=== PATIENT | female | born 1945 | race Caucasian/White ===

== ENCOUNTER 2016-05-26 10:41 | Emergency (ER) | payer MEDICARE | END 2016-05-26 14:05 | disposition home or self-care (01) | LOC: D.ER 10:41 | DX: T78.3XXA Angioneurotic edema, initial encounter (principal); M54.5 Low back pain; K21.9 Gastro-esophageal reflux disease without esophagitis; I10 Essential (primary) hypertension; K58.9 Irritable bowel syndrome, unspecified ==

== ENCOUNTER → 2017-06-15 08:42 | Outpatient (CLI) | payer MEDICARE, OTHER ==
[2017-07-02 13:47] VITALS: BMI 21.0
== END | disposition home or self-care (01) ==
LOC: D.US 08:42
DX: R22.43 Localized swelling, mass and lump, lower limb, bilateral (principal); M79.605 Pain in left leg; M79.604 Pain in right leg

== ENCOUNTER 2017-07-02 12:45 | Outpatient (CLI) | payer MEDICARE, OTHER ==
[~2017-07-02] VITALS: Ht 167.6 cm; Wt 59.1 kg
[2017-07-02 13:47] VITALS: BP 123/66; Ht 167.6 cm; Wt 59.1 kg
[2017-07-02 21:04] LABS: BASOPHILS 0.3 % (0-2); EOSINOPHILS 1.6 % (0-7); HEMATOCRIT 31.2 % (36.0-48.0); HEMOGLOBIN 9.8 g/dL (12-16); IMMATURE GRANULOCYTES 4.5 % (0-5); LYMPHOCYTES 20.6 % (15-50); MCH 29.3 pg (26.0-34.0); MCHC 31.4 g/dL (31.0-37.0); MCV 93.1 fL (80.0-100.0); MEAN PLATELET VOLUME 8.9 fL (7.4-10.4); MONOCYTES 9.4 % (2-11); NEUTROPHILS 63.6 % (40-80); RBC 3.35 10x6/uL (4.00-5.40); RDW 17.6 % (11.5-14.5)
[2017-07-02 21:05] LABS: PLATELET COUNT 282 10x3/uL (130-400)
== END 2017-07-02 20:50 | disposition home or self-care (01) ==
LOC: D.OPS 12:45
PROVIDERS: Family Medicine
DX: D64.9 Anemia, unspecified (principal)

== ENCOUNTER 2017-11-23 11:02 | Emergency (ER) | payer MEDICARE ==
[~2017-11-23] VITALS: Ht 167.6 cm; Wt 50.0 kg
[2017-11-23 11:25] VITALS: Ht 167.6 cm; Wt 50.0 kg
[2017-11-23 12:20] LABS: APPEARANCE SL CLDY (CLEAR); COLOR YELLOW (YELLOW)
[2017-11-23 12:21] LABS: BACTERIA MANY /hpf (NONE SEEN); BILIRUBIN NEGATIVE (NEGATIVE); EPITHELIAL CELLS OCC /hpf (0-5); GLUCOSE NEGATIVE (NEGATIVE); KETONE NEGATIVE (NEGATIVE); NITRITE POSITIVE (NEGATIVE); PROTEIN TRACE mg/dL (NEGATIVE); RED CELLS - URINE OCC /hpf (0-5); SPECIFIC GRAVITY 1.015 (1.005-1.020); UROBILINOGEN NORMAL (NORMAL)
[2017-11-23 13:28] LABS: BASOPHILS 0 % (0-2); EOSINOPHILS 0 % (0-7); HEMATOCRIT 40.5 % (36.0-48.0); HEMOGLOBIN 12.7 g/dL (12-16); IMMATURE GRANULOCYTES 0.5 % (0-5); LYMPHOCYTES 9.4 % (15-50); MCH 30.2 pg (26.0-34.0); MCHC 31.4 g/dL (31.0-37.0); MCV 96.4 fL (80.0-100.0); MONOCYTES 3.3 % (2-11); NEUTROPHILS 86.8 % (40-80); PLATELET COUNT 226 10x3/uL (130-400); RDW 15.7 % (11.5-14.5); WBC 7.9 10x3/uL (4.8-10.8)
[2017-11-23 13:52] LABS: ANION GAP 16.4 mmol/L (8-16); BILIRUBIN - TOTAL 0.41 mg/dL (0.2-1.3); CALCIUM 9.6 mg/dL (8.5-10.1); CARBON DIOXIDE 25.6 mmol/L (21.0-32.0); CREATININE - SERUM 2.1 mg/dL (0.6-1.3); PROTEIN - SERUM 8.3 g/dL (6.4-8.2)
[2017-11-23] MEDS ORDERED: MACROBID100 MG PO (13:59)
[2017-11-23] MEDS ORDERED: ZOFRAN8 MG PO (13:59)
[2017-11-23 14:40] VITALS: BP 147/89
== END 2017-11-23 14:40 | disposition home or self-care (01) ==
LOC: D.ER 11:02
PROVIDERS: Family Medicine
DX: R11.2 Nausea with vomiting, unspecified (principal); I12.9 Hypertensive chronic kidney disease with stage 1 through stage 4 chronic kidney disease, or unspecified chronic kidney disease; N18.9 Chronic kidney disease, unspecified; Z87.19 Personal history of other diseases of the digestive system; Z85.528 Personal history of other malignant neoplasm of kidney; Z90.5 Acquired absence of kidney

== ENCOUNTER → 2018-01-09 11:15 | Outpatient (CLI) | payer MEDICARE ==
[2017-11-23 11:25] VITALS: BMI 17.8
[~2018-01-09 11:15] MED LIST: MACROBID100 MG PO; ZOFRAN8 MG PO
[2018-01-09 13:41] LABS: INR 2.19 (0.85-1.17); PROTIME 23.7 SECONDS (11.6-15.0)
== END | disposition home or self-care (01) ==
LOC: D.LABREF 11:15
PROVIDERS: Family Medicine
DX: E55.9 Vitamin D deficiency, unspecified (principal); Z51.81 Encounter for therapeutic drug level monitoring; Z79.01 Long term (current) use of anticoagulants; I82.409 Acute embolism and thrombosis of unspecified deep veins of unspecified lower extremity

== ENCOUNTER → 2018-02-04 12:46 | Outpatient (CLI) | payer MEDICARE ==
[2017-11-23 11:25] VITALS: BMI 17.8
[2018-02-04 13:57] LABS: INR 3.52 (0.85-1.17); PROTIME 34.5 SECONDS (11.6-15.0)
== END | disposition home or self-care (01) ==
LOC: D.LAB 12:46
PROVIDERS: Family Medicine
DX: I82.409 Acute embolism and thrombosis of unspecified deep veins of unspecified lower extremity (principal); Z51.81 Encounter for therapeutic drug level monitoring; Z79.01 Long term (current) use of anticoagulants

== ENCOUNTER → 2018-04-24 11:14 | Outpatient (CLI) | payer MEDICARE ==
[2017-11-23 11:25] VITALS: BMI 17.8
[2018-04-24 12:14] LABS: BASOPHILS 0.3 % (0-2); EOSINOPHILS 0.9 % (0-7); HEMATOCRIT 41.7 % (36.0-48.0); HEMOGLOBIN 13.3 g/dL (12-16); MCH 29.2 pg (26.0-34.0); MCHC 31.9 g/dL (31.0-37.0); MCV 91.4 fL (80.0-100.0); MEAN PLATELET VOLUME 10.5 fL (7.4-10.4); MONOCYTES 8.3 % (2-11); NEUTROPHILS 53.5 % (40-80); PLATELET COUNT 191 10x3/uL (130-400); RBC 4.56 10x6/uL (4.00-5.40); RDW 13.9 % (11.5-14.5); WBC 3.2 10x3/uL (4.8-10.8)
[2018-04-24 12:17] LABS: ALBUMIN 4.1 g/dL (3.4-5.0); ANION GAP 10.2 mmol/L (8-16); BILIRUBIN - TOTAL 0.46 mg/dL (0.2-1.3); CALCIUM 9.8 mg/dL (8.5-10.1); CARBON DIOXIDE 30.7 mmol/L (21.0-32.0); CREATININE - SERUM 2.3 mg/dL (0.6-1.3); POTASSIUM - SERUM 3.9 mmol/L (3.5-5.1); PROTEIN - SERUM 9.1 g/dL (6.4-8.2); THYROID STIMULATING HORMONE 1.77 uIU/mL (0.36-3.74)
[2018-04-24 12:21] LABS: INR 1.19 (0.85-1.17); PROTIME 14.5 SECONDS (11.6-15.0)
== END | disposition home or self-care (01) ==
LOC: D.LAB 11:14
PROVIDERS: Family Medicine
DX: I10 Essential (primary) hypertension (principal); N32.81 Overactive bladder; M19.90 Unspecified osteoarthritis, unspecified site; I82.409 Acute embolism and thrombosis of unspecified deep veins of unspecified lower extremity

== ENCOUNTER → 2018-05-27 14:32 | Outpatient (CLI) | payer MEDICARE ==
[2017-11-23 11:25] VITALS: BMI 17.8
[2018-05-27 15:12] LABS: BASOPHILS 0 % (0-2); EOSINOPHILS 0.7 % (0-7); HEMOGLOBIN 12.4 g/dL (12-16); IMMATURE GRANULOCYTES 0.2 % (0-5); LYMPHOCYTES 26.6 % (15-50); MCH 29.1 pg (26.0-34.0); MCHC 32.6 g/dL (31.0-37.0); MCV 89.2 fL (80.0-100.0); MEAN PLATELET VOLUME 10.7 fL (7.4-10.4); MONOCYTES 6.8 % (2-11); NEUTROPHILS 65.7 % (40-80); PLATELET COUNT 214 10x3/uL (130-400); RBC 4.26 10x6/uL (4.00-5.40); RDW 13.8 % (11.5-14.5); WBC 4.1 10x3/uL (4.8-10.8)
[2018-05-27 15:20] LABS: INR 2.03 (0.85-1.17); PROTIME 22.3 SECONDS (11.6-15.0)
[2018-05-27 15:43] LABS: ANION GAP 17.3 mmol/L (8-16); CREATININE - SERUM 2.2 mg/dL (0.6-1.3); POTASSIUM - SERUM 4.3 mmol/L (3.5-5.1)
== END | disposition home or self-care (01) ==
LOC: D.LAB 09:15
PROVIDERS: Family Medicine
DX: I82.409 Acute embolism and thrombosis of unspecified deep veins of unspecified lower extremity (principal); D72.819 Decreased white blood cell count, unspecified; N28.9 Disorder of kidney and ureter, unspecified

== ENCOUNTER → 2018-07-01 13:23 | Outpatient (CLI) | payer MEDICARE ==
[2017-11-23 11:25] VITALS: BMI 17.8
[2018-07-01 14:19] LABS: INR 1.88 (0.85-1.17); PROTIME 20.9 SECONDS (11.6-15.0)
[2018-07-01 14:39] LABS: ALBUMIN 3.8 g/dL (3.4-5.0); ANION GAP 14.9 mmol/L (8-16); BILIRUBIN - TOTAL 0.56 mg/dL (0.2-1.3); CALCIUM 9.4 mg/dL (8.5-10.1); CARBON DIOXIDE 25.4 mmol/L (21.0-32.0); CREATININE - SERUM 1.9 mg/dL (0.6-1.3); POTASSIUM - SERUM 4.3 mmol/L (3.5-5.1); PROTEIN - SERUM 8.6 g/dL (6.4-8.2)
== END | disposition home or self-care (01) ==
LOC: D.LAB 13:23
PROVIDERS: ATTEND Family Medicine
DX: I82.409 Acute embolism and thrombosis of unspecified deep veins of unspecified lower extremity (principal); N28.9 Disorder of kidney and ureter, unspecified; Z51.81 Encounter for therapeutic drug level monitoring; Z79.01 Long term (current) use of anticoagulants

== ENCOUNTER → 2018-08-02 12:54 | Outpatient (CLI) | payer MEDICARE ==
[2017-11-23 11:25] VITALS: BMI 17.8
[2018-08-02 13:35] LABS: BASOPHILS 0.2 % (0-2); EOSINOPHILS 1.2 % (0-7); HEMATOCRIT 41.5 % (36.0-48.0); HEMOGLOBIN 13.5 g/dL (12-16); IMMATURE GRANULOCYTES 0.6 % (0-5); LYMPHOCYTES 23.4 % (15-50); MCH 29.4 pg (26.0-34.0); MCHC 32.5 g/dL (31.0-37.0); MCV 90.4 fL (80.0-100.0); MEAN PLATELET VOLUME 10.4 fL (7.4-10.4); NEUTROPHILS 64.6 % (40-80); PLATELET COUNT 209 10x3/uL (130-400); RBC 4.59 10x6/uL (4.00-5.40); RDW 14.4 % (11.5-14.5); WBC 4.8 10x3/uL (4.8-10.8)
[2018-08-02 13:43] LABS: INR 2.28 (0.85-1.17); PROTIME 24.4 SECONDS (11.6-15.0)
[2018-08-02 13:47] LABS: ALBUMIN 3.8 g/dL (3.4-5.0); ANION GAP 9.4 mmol/L (8-16); BILIRUBIN - TOTAL 0.4 mg/dL (0.2-1.3); CALCIUM 9.5 mg/dL (8.5-10.1); CARBON DIOXIDE 28.8 mmol/L (21.0-32.0); CREATININE - SERUM 2.6 mg/dL (0.6-1.3); POTASSIUM - SERUM 4.2 mmol/L (3.5-5.1); PROTEIN - SERUM 8.9 g/dL (6.4-8.2)
== END | disposition home or self-care (01) ==
LOC: D.LAB 12:54
PROVIDERS: ATTEND Family Medicine
DX: I82.409 Acute embolism and thrombosis of unspecified deep veins of unspecified lower extremity (principal); R10.9 Unspecified abdominal pain; Z79.01 Long term (current) use of anticoagulants

== ENCOUNTER → 2018-11-11 11:44 | Outpatient (CLI) | payer MEDICARE ==
[2017-11-23 11:25] VITALS: BMI 17.8
[2018-11-11 12:29] LABS: INR 3.33 (0.85-1.17)
== END | disposition home or self-care (01) ==
LOC: D.LAB 11:44
PROVIDERS: ATTEND Family Medicine
DX: Z79.02 Long term (current) use of antithrombotics/antiplatelets (principal)

== ENCOUNTER → 2019-02-14 12:43 | Outpatient (CLI) | payer MEDICARE ==
[2017-11-23 11:25] VITALS: BMI 17.8
[2019-02-14 13:21] LABS: BASOPHILS 0.2 % (0-2); EOSINOPHILS 1.5 % (0-7); HEMATOCRIT 38.9 % (36.0-48.0); HEMOGLOBIN 11.9 g/dL (12-16); IMMATURE GRANULOCYTES 0.7 % (0-5); LYMPHOCYTES 26.4 % (15-50); MCH 28.6 pg (26.0-34.0); MCHC 30.6 g/dL (31.0-37.0); MCV 93.5 fL (80.0-100.0); MEAN PLATELET VOLUME 10.4 fL (7.4-10.4); MONOCYTES 8.7 % (2-11); NEUTROPHILS 62.5 % (40-80); PLATELET COUNT 238 10x3/uL (130-400); RBC 4.16 10x6/uL (4.00-5.40); RDW 14.9 % (11.5-14.5); WBC 4.6 10x3/uL (4.8-10.8)
[2019-02-14 13:26] LABS: APPEARANCE CLEAR (CLEAR); BILIRUBIN NEGATIVE (NEGATIVE); COLOR STRAW (YELLOW); GLUCOSE NEGATIVE (NEGATIVE); KETONE NEGATIVE (NEGATIVE); NITRITE NEGATIVE (NEGATIVE); PROTEIN NEGATIVE (NEGATIVE); UROBILINOGEN NORMAL (NORMAL)
[2019-02-14 13:30] LABS: INR 2.15 (0.85-1.17); PROTIME 23.3 SECONDS (11.6-15.0)
[2019-02-14 14:01] LABS: ALBUMIN 3.8 g/dL (3.4-5.0); ANION GAP 11.7 mmol/L (8-16); BILIRUBIN - TOTAL 0.27 mg/dL (0.2-1.3); CARBON DIOXIDE 28.1 mmol/L (21.0-32.0); POTASSIUM - SERUM 4.8 mmol/L (3.5-5.1); PROTEIN - SERUM 7.8 g/dL (6.4-8.2)
== END | disposition home or self-care (01) ==
LOC: D.LAB 12:43
PROVIDERS: ATTEND Family Medicine
DX: I82.401 Acute embolism and thrombosis of unspecified deep veins of right lower extremity (principal); I12.9 Hypertensive chronic kidney disease with stage 1 through stage 4 chronic kidney disease, or unspecified chronic kidney disease; N18.9 Chronic kidney disease, unspecified; R30.0 Dysuria